=== PATIENT | female | born 1945 | race Caucasian/White ===

== ENCOUNTER → 2016-09-28 | Outpatient (REF) | payer MEDICARE ==
[~2016-09-28] MED LIST: AVAP300T23 PO; BACT800T5 PO; FOSA70TA PO; MACR100C3 PO; SIMV20TA2 PO; TYLE325T5 PO
[2016-09-28 17:56] LABS: FREE T4 0.79 NG/DL (0.76-1.46)
== END ==
LOC: M LABDRAWC 16:17
PROVIDERS: ATTEND Internal Medicine
DX: E03.9 Hypothyroidism, unspecified (principal)

== ENCOUNTER → 2017-05-02 | Outpatient (REF) | payer MEDICARE ==
[~2017-05-02] MED LIST changes: +ATOR1TAB21 PO; +IRBE300T10 PO; -MACR100C3 PO; +MACR100C43 PO
[2017-05-02 13:36] LABS: ALBUMIN 4.1 GM/DL (3.2-5.2); ALBUMIN/GLOBULIN RATIO 1.28 (1.00-1.93); ALKALINE PHOSPHATASE 113 U/L (45-117); ALT/SGPT 43 U/L (12-78); ANION GAP 7 MEQ/L (8-16); AST/SGOT 18 U/L (15-37); BILIRUBIN,TOTAL 0.9 MG/DL (0.2-1.0); BLOOD UREA NITROGEN 17 MG/DL (7-18); CALCIUM LEVEL 9.5 MG/DL (8.8-10.2); CARBON DIOXIDE LEVEL 28 MEQ/L (21-32); CHLORIDE LEVEL 107 MEQ/L (98-107); CHOLESTEROL LEVEL 176 MG/DL (<200); CREATININE FOR GFR 0.87 MG/DL (0.55-1.02); GLOMERULAR FILTRATION RATE > 60.0 (>39); GLUCOSE, FASTING 88 MG/DL (83-110); POTASSIUM SERUM 4.6 MEQ/L (3.5-5.1); SODIUM LEVEL 142 MEQ/L (136-145); TOTAL PROTEIN 7.3 GM/DL (6.4-8.2); TRIGLYCERIDES LEVEL 91 MG/DL (<150)
== END ==
LOC: M LABDRAWC 11:24
PROVIDERS: ATTEND Internal Medicine
DX: R73.9 Hyperglycemia, unspecified (principal); E78.00 Pure hypercholesterolemia, unspecified

== ENCOUNTER 2017-05-23 12:15 | Outpatient (CLI) | payer MEDICARE ==
[~2017-05-23] VITALS: Ht 162.6 cm; Wt 65.8 kg
[~2017-05-23 12:15] MED LIST changes: +BUPIVACAINE HCL 0.25% 30 ML VIAL As Ordered ONE; +GLYCOPYRROLATE INJ 0.2 MG/ML 2 ML VIAL As Ordered ONE; +HYDROmorphone HCL 2 MG/ML 1ML VIAL (J1170) As Ordered ONE; +KETOROLAC 60 MG/2 ML VIAL (J1885) As Ordered ONE; +LIDOCAINE 2% INJ 100 MG/5 ML SDV (FOR ANES.) As Ordered ONE; +METHYLENE BLUE 0.5% (5MG/ML) 10 ML AMP (PROVAYBLUE)(Q9968 PER 1MG) As Ordered ONE; +MIDAZOLAM INJ 2 MG/2 ML VIAL (J2250) As Ordered ONE; +NEOSTIGMINE 1MG/ML 5 ML SYRINGE (J2710) As Ordered ONE; +ONDANSETRON 4MG/2ML VIAL (J2405) As Ordered ONE; +PROPOFOL 200 MG/20 ML VIAL As Ordered ONE; +ROCURONIUM BROMIDE 50 MG/5 ML VIAL/SYRINGE As Ordered ONE; +dexameTHASONE 4 MG/ML 1ML VIAL (J1100) As Ordered ONE; +fentaNYL 100 MCG/2 ML INJECTION (J3010) As Ordered ONE
[2017-05-23] MEDS ORDERED: NS 1,000 ML IV ONE (12:30)
[2017-05-23] MEDS ORDERED: LIDOCAINE 2% INJ 100 MG/5 ML SDV (FOR ANES.) As Ordered ONE (13:34)
[2017-05-23] MEDS ORDERED: PROPOFOL 200 MG/20 ML VIAL As Ordered ONE (13:34)
--- NOTE | 2017-05-23 13:51 | ROOR ---
Patient Name: Diana Lyon Procedure Date: 05/23/2017 1:25 PM Date of : 1945 Age: 71 Room: [facility] Gender: Female Note Status: Finalized Procedure: Total Colonoscopy to cecum + Biopsy Polypectomy Indications: Screening for colorectal malignant neoplasm, Last colonoscopy 10 years ago Providers: Francis Andre MD Referring MD: Madhav Alberto MD Requesting Provider: Medicines: Monitored Anesthesia Care Complications: No immediate complications. Procedure: Pre-Anesthesia Assessment: - The heart rate, respiratory rate, oxygen saturations, blood pressure, adequacy of pulmonary ventilation, and response to care were monitored throughout the procedure. The Colonoscope was introduced through the anus and advanced to the cecum, identified by appendiceal orifice and ileocecal valve. Findings: The perianal and digital rectal examinations were normal. Non-bleeding internal hemorrhoids were found during retroflexion. The hemorrhoids were small and Grade I (internal hemorrhoids that do not prolapse). Multiple small and large-mouthed diverticula were found in the recto-sigmoid colon, sigmoid colon and descending colon. A diminutive polyp was found in the mid ascending colon. The polyp was sessile. The polyp was removed with a jumbo cold forceps. Resection and retrieval were complete. The exam was otherwise without abnormality on direct and retroflexion views. Impression: - Non-bleeding internal hemorrhoids. - Diverticulosis in the recto-sigmoid colon, in the sigmoid colon and in the descending colon. - One diminutive polyp in the mid ascending colon, removed with a jumbo cold forceps. Resected and retrieved. - The examination was otherwise normal on direct and retroflexion views. - The exam was otherwise normal to the cecum. Recommendation: - Patient has a contact number available for emergencies. The signs and symptoms of potential delayed complications were discussed with the patient. Return to normal activities tomorrow. Written discharge instructions were provided to the patient. - High fiber diet. - Discharge patient to home. - Continue present medications. - Await pathology results. - Telephone GI clinic for pathology results in 1 week. - Repeat colonoscopy for symptoms only. - Return to referring physician. - The findings and recommendations were discussed with the patient's family. Francis Andre MD Francis Andre MD 05/23/2017 1:51:05 PM This report has been signed electronically. Number of Addenda: 0 Note Initiated On: 05/23/2017 1:25 PM Estimated Blood Loss: Estimated blood loss: none.
[2017-05-23 14:24] VITALS: BP 131/77
== END 2017-05-23 14:27 | disposition home or self-care (01) ==
LOC: M OPP 12:15
PROVIDERS: ATTEND Internal Medicine Gastroenterology
DX: Z12.11 Encounter for screening for malignant neoplasm of colon (principal); D12.2 Benign neoplasm of ascending colon; K64.0 First degree hemorrhoids; K57.30 Diverticulosis of large intestine without perforation or abscess without bleeding; I10 Essential (primary) hypertension; E78.5 Hyperlipidemia, unspecified; R12 Heartburn; Z78.0 Asymptomatic menopausal state; Z79.899 Other long term (current) drug therapy; Z80.3 Family history of malignant neoplasm of breast; Z80.1 Family history of malignant neoplasm of trachea, bronchus and lung
CPT/HCPCS: 45380; 88305; J1100; J1170; J2250; J2405; J2710; J3010

== ENCOUNTER → 2017-08-06 | Outpatient (REF) | payer MEDICARE ==
[~2017-08-06] MED LIST changes: -BUPIVACAINE HCL 0.25% 30 ML VIAL As Ordered ONE; -GLYCOPYRROLATE INJ 0.2 MG/ML 2 ML VIAL As Ordered ONE; -HYDROmorphone HCL 2 MG/ML 1ML VIAL (J1170) As Ordered ONE; -KETOROLAC 60 MG/2 ML VIAL (J1885) As Ordered ONE; -LIDOCAINE 2% INJ 100 MG/5 ML SDV (FOR ANES.) As Ordered ONE; -METHYLENE BLUE 0.5% (5MG/ML) 10 ML AMP (PROVAYBLUE)(Q9968 PER 1MG) As Ordered ONE; -MIDAZOLAM INJ 2 MG/2 ML VIAL (J2250) As Ordered ONE; -NEOSTIGMINE 1MG/ML 5 ML SYRINGE (J2710) As Ordered ONE; -ONDANSETRON 4MG/2ML VIAL (J2405) As Ordered ONE; -PROPOFOL 200 MG/20 ML VIAL As Ordered ONE; -ROCURONIUM BROMIDE 50 MG/5 ML VIAL/SYRINGE As Ordered ONE; -dexameTHASONE 4 MG/ML 1ML VIAL (J1100) As Ordered ONE; -fentaNYL 100 MCG/2 ML INJECTION (J3010) As Ordered ONE
[2017-08-06 18:47] LABS: ALBUMIN 4.1 GM/DL (3.2-5.2); ALBUMIN/GLOBULIN RATIO 1.32 (1.00-1.93); ALKALINE PHOSPHATASE 81 U/L (45-117); ALT/SGPT 31 U/L (12-78); ANION GAP 7 MEQ/L (8-16); AST/SGOT 18 U/L (7-37); BILIRUBIN,DIRECT 0.2 MG/DL (0.0-0.2); BILIRUBIN,TOTAL 0.6 MG/DL (0.2-1.0); BLOOD UREA NITROGEN 16 MG/DL (7-18); CALCIUM LEVEL 9.1 MG/DL (8.8-10.2); CARBON DIOXIDE LEVEL 26 MEQ/L (21-32); CHLORIDE LEVEL 109 MEQ/L (98-107); CHOLESTEROL LEVEL 199 MG/DL (<200); GLOMERULAR FILTRATION RATE > 60.0 (>39); GLUCOSE, FASTING 112 MG/DL (83-110); POTASSIUM SERUM 4.3 MEQ/L (3.5-5.1); SODIUM LEVEL 142 MEQ/L (136-145); TOTAL PROTEIN 7.2 GM/DL (6.4-8.2); TRIGLYCERIDES LEVEL 93 MG/DL (<150)
[2017-08-06 19:23] LABS: EOS # 0.1 10^3/uL (0.0-0.50); IMMATURE GRANULOCYTE % 0.2 % (0-0); LYMPH % 24.8 % (24.0-44.0); MEAN CORPUSCULAR HEMOGLOBIN 31.1 pg (27.0-33.0); MEAN CORPUSCULAR HGB CONC 31.8 g/dl (32.0-36.5); MEAN CORPUSCULAR VOLUME 97.9 fl (80.0-96.0); MONO # 0.5 10^3/uL (0.0-0.8); MONO % 11.4 % (0.0-5.0); NEUTROPHILS # 2.4 10^3/uL (1.8-7.7); NEUTROPHILS % 60.6 % (36.0-66.0); PLATELET COUNT, AUTOMATED 285 10^3/uL (150-450); RED CELL DISTRIBUTION WIDTH 12.8 % (11.5-14.5)
[2017-08-06 19:45] LABS: VITAMIN B12 LEVEL 727 PG/ML (247-911)
== END ==
LOC: M LAB REF 17:05
PROVIDERS: ATTEND Internal Medicine
DX: Z00.00 Encounter for general adult medical examination without abnormal findings (principal); Z23 Encounter for immunization; M81.0 Age-related osteoporosis without current pathological fracture; I10 Essential (primary) hypertension; R19.00 Intra-abdominal and pelvic swelling, mass and lump, unspecified site; R73.09 Other abnormal glucose

== ENCOUNTER → 2017-08-31 | Outpatient (REF) | payer MEDICARE ==
[2017-09-05 00:10] LABS: HE4 50.7 pmol/L (0.0-96.9)
== END ==
LOC: M LAB REF 18:16
DX: R19.00 Intra-abdominal and pelvic swelling, mass and lump, unspecified site (principal)

== ENCOUNTER → 2017-09-28 | Outpatient (REF) | payer MEDICARE | LOC: M LABDRAWC 16:47 | DX: R94.6 Abnormal results of thyroid function studies (principal) | CPT/HCPCS: 84443 ==

== ENCOUNTER 2025-05-20 22:54 | Emergency (ER) | payer MEDICARE ==
[~2025-05-20] VITALS: Ht 162.6 cm; Wt 64.1 kg
[~2025-05-20 22:54] MED LIST changes: +ALEN70TA87 PO; -FOSA70TA PO; -IRBE300T10 PO; +IRBE300T25 PO; -SIMV20TA2 PO; +SIMV20TA22 PO
[2025-05-21] MEDS: traMADol 50 MG TAB PO ONE (00:20)
[2025-05-21] MEDS: IBUPROFEN 600 MG TAB PO ONE (00:20)
[2025-05-21 00:45] VITALS: TEMP 97.9
[2025-05-21] MEDS ORDERED: IBUPROFEN 600 MG TAB As Ordered ONE (01:33)
[2025-05-21] MEDS ORDERED: traMADol 50 MG TAB As Ordered ONE (01:33)
[2025-05-21] MEDS ORDERED: TRAM50TA2 PO (03:58)
[2025-05-21] MEDS: LIDOCAINE 5% PATCH TD ONE (05:02)
[2025-05-21 05:27] VITALS: BP 136/84; O2SAT 97
== END 2025-05-21 05:29 | disposition home or self-care (01) ==
LOC: M ED 22:54
DX: S42.102A Fracture of unspecified part of scapula, left shoulder, initial encounter for closed fracture (principal); Y92.89 Other specified places as the place of occurrence of the external cause; Y93.89 Activity, other specified; Y99.8 Other external cause status; Z88.2 Allergy status to sulfonamides; Z88.8 Allergy status to other drugs, medicaments and biological substances; Z79.1 Long term (current) use of non-steroidal anti-inflammatories (NSAID); Z79.899 Other long term (current) drug therapy

== ENCOUNTER → 2025-05-28 | Outpatient (CLI) | payer MEDICARE ==
[~2025-05-28] MED LIST changes: +TRAM50TA2 PO
== END ==
LOC: M SOG 06:49
PROVIDERS: ATTEND Orthopaedic Surgery
DX: S42.102A Fracture of unspecified part of scapula, left shoulder, initial encounter for closed fracture (principal); X58.XXXA Exposure to other specified factors, initial encounter; Y92.9 Unspecified place or not applicable; Y93.9 Activity, unspecified; Y99.9 Unspecified external cause status

== ENCOUNTER → 2025-07-09 | Outpatient (CLI) | payer MEDICARE | LOC: M SOG 07:24 | PROVIDERS: ATTEND Orthopaedic Surgery | DX: S42.102A Fracture of unspecified part of scapula, left shoulder, initial encounter for closed fracture (principal); W18.30XA Fall on same level, unspecified, initial encounter; Y92.009 Unspecified place in unspecified non-institutional (private) residence as the place of occurrence of the external cause ==

== ENCOUNTER → 2025-09-03 | Outpatient (CLI) | payer MEDICARE | LOC: M CLY 13:43 | PROVIDERS: ATTEND Physician Assistant | DX: M25.561 Pain in right knee (principal) ==